=== PATIENT | male | born 1955 | race Caucasian/White ===

== ENCOUNTER 2019-04-02 08:37 | Day surgery (SDC) | payer BC ==
[~2019-04-02] VITALS: Ht 170.2 cm; Wt 57.5 kg
[~2019-04-02 08:37] MED LIST: ASCO500 PO; ASPI81CH; GLUCOSAMINE HC500 MG PO; MULTI-DAY PLUS1 EAC1 PO; RXOXYACE PO; Super Calcium600 MG PO
== END 2019-04-02 10:53 | disposition home or self-care (01) ==
LOC: ORSCSDS 08:37
PROVIDERS: Surgery
PROC: 0DJD8ZZ Inspection of Lower Intestinal Tract, Via Natural or Artificial Opening Endoscopic (ICD-10-PCS; principal; 2019-04-02 09:45)
DX: Z12.11 Encounter for screening for malignant neoplasm of colon (principal)
CPT/HCPCS: J2704; J7120

== ENCOUNTER 2019-04-30 11:56 | Day surgery (SDC) | payer BC ==
[~2019-04-30] VITALS: Ht 172.7 cm; Wt 59.1 kg
[~2019-04-30 11:56] MED LIST changes: +MAGNESIUM PO
--- NOTE | 2019-04-30 12:59 | NUR ---
History, Chart, Medications and Allergies reviewed before start of procedure.Patient confirms NPO status and agrees with scheduled surgery. Pre-Op teaching done. Pt verbalizes understanding. Surgical site prepped with 2% Chlorhexidine cloth wipe. Lungs clear T/O to Auscultation.
--- NOTE | 2019-04-30 18:25 | NUR ---
Discharge instructions reviewed with patient AND PT'S SISTER. . Patient verbalizes understanding. Copy given to patient to take home. Discharged via wheelchair to private car for ride home. PT STATED SATISFACTION OF CARE.
== END 2019-04-30 18:19 | disposition home or self-care (01) ==
LOC: ORSCMMR 11:56 → ORD 13:30 → ORSCMMR 13:30
PROVIDERS: Surgery
PROC: 0YU54JZ Supplement Right Inguinal Region with Synthetic Substitute, Percutaneous Endoscopic Approach (ICD-10-PCS; principal; 2019-04-30 13:30)
PROC: 8E0W4CZ Robotic Assisted Procedure of Trunk Region, Percutaneous Endoscopic Approach (ICD-10-PCS; principal; 2019-04-30 13:30)
DX: K40.91 Unilateral inguinal hernia, without obstruction or gangrene, recurrent (principal)
CPT/HCPCS: 49651; S2900; 87071; 87075; 87205; A9270-GY; C1781; J0690; J1100; J2250; J2370; J2405; J2704; J3010; J7120